=== PATIENT | male | born 1975 | race Two or more races ===

== ENCOUNTER 2020-03-25 16:39 | Outpatient (REF) | payer OTHER, SELFPAY | END 2020-03-25 16:40 | disposition home or self-care (01) | LOC: HO.LAB 16:39 | PROVIDERS: Visit Provider Internal Medicine | DX: Z20.822 Contact with and (suspected) exposure to COVID-19 (principal) | CPT/HCPCS: 36415; C9803; U0003 ==

== ENCOUNTER 2021-06-02 07:09 | Outpatient (REF) | payer OTHER, SELFPAY ==
--- NOTE | ~2021-06-02 | XR_ITS ---
EXAMINATION: XR SHOULDER, RIGHT CLINICAL INFORMATION: Pain COMPARISON: None TECHNIQUE: 3 views of the right shoulder. FINDINGS: The bones and soft tissues are normal. No fracture. Glenohumeral and acromioclavicular alignment is anatomic with normal joint space. No abnormal soft tissue calcifications. XR/XR shoulder RT min 2V IMPRESSION: Normal right shoulder.
== END 2021-06-02 07:10 | disposition home or self-care (01) ==
LOC: HO.HOSX 07:09
PROVIDERS: Visit Provider Physician Assistant
DX: M75.101 Unspecified rotator cuff tear or rupture of right shoulder, not specified as traumatic (principal)
CPT/HCPCS: 20610; 73030; 99202; J1040

== ENCOUNTER 2021-06-26 12:03 | Outpatient (REF) | payer OTHER, SELFPAY ==
[2021-06-26 12:25] LABS: MANUAL DIFF FLAG NO
[2021-06-26 13:14] LABS: Basophils Absolute Auto 0.1 X10*3/uL (0.0-0.2); Basophils Percent Auto 0.8 % (0-2); Eosinophils Absolute Auto 0.2 X10*3/uL (0.0-0.4); Eosinophils Percent Auto 2.1 % (0-4); Hematocrit 44.5 % (42.0-52.0); Hemoglobin 15.1 g/dl (14.0-18.0); Imm Gran Abs Auto 0.02 X10*3/uL (0.00-0.03); Imm Gran Pct Auto 0.2 % (0.0-0.4); Lymphocytes Absolute Auto 2.6 X10*3/uL (1.2-4.9); Lymphocytes Percent Auto 31.5 % (20-40); Mean Corpuscular HGB Conc 33.9 g/dl (31.0-36.0); Mean Corpuscular Hemoglobin 32.6 pg (27.0-33.0); Mean Corpuscular Volume 96.1 fL (80.0-98.0); Mean Platelet Volume 9.6 fL (9.4-12.4); Monocytes Absolute Auto 0.5 X10*3/uL (0.1-1.2); Monocytes Percent Auto 6.2 % (2-11); Neutrophils Absolute Auto 4.9 x10*3/uL (2.0-8.3); Neutrophils Percent Auto 59.2 % (45-73); Platelet Count 273 X10*3/uL (160-400); Red Blood Count 4.63 X10*6/uL (4.60-5.80); Red Cell Distribution Width 12.9 % (11.0-16.0); White Blood Count 8.3 X10*3/uL (4.8-10.8)
[2021-06-26 13:46] LABS: Alanine Aminotransferase 15 U/L (0-40); Albumin Level 4.5 g/dL (3.5-5.0); Alkaline Phosphatase 63 U/L (39-117); Anion Gap 10 (12-20); Aspartate Amino Transferase 16 U/L (5-37); Bilirubin Total 0.6 mg/dL (0.0-1.0); Blood Urea Nitrogen 18 mg/dL (9-16); Calcium 10.3 mg/dL (8.4-10.2); Carbon Dioxide 29 mmol/L (22-29); Chloride 105 mmol/L (96-108); Cholesterol 243 mg/dL; Estimated Glomerular Filt Rate > 60; Glucose Fasting 95 mg/dL (60-99); HDL Cholesterol 36 mg/dL; LDL Cholesterol Calculated 150 mg/dl; Potassium 4.7 mmol/L (3.3-5.1); Sodium 139 mmol/L (135-145); Total Protein 7.1 g/dL (6.5-8.0); Triglycerides 288 mg/dL
[2021-06-26 14:09] LABS: TSH reflex Free T4 1.94 uIU/mL (0.32-4.0)
[2021-07-01 14:46] LABS: Vitamin D 25-OH, D2 <4 ng/mL; Vitamin D 25-OH, D3 13 ng/mL; Vitamin D 25-OH, Total 13 ng/mL (30-100)
== END 2021-06-26 12:04 | disposition home or self-care (01) ==
LOC: HO.LAB 12:03
PROVIDERS: PCP Nurse Practitioner Family; Visit Provider Nurse Practitioner Family
DX: M75.101 Unspecified rotator cuff tear or rupture of right shoulder, not specified as traumatic (principal); I10 Essential (primary) hypertension; E78.00 Pure hypercholesterolemia, unspecified; Z76.89 Persons encountering health services in other specified circumstances; Z82.49 Family history of ischemic heart disease and other diseases of the circulatory system
CPT/HCPCS: 36415; 80053; 80061; 82306; 84443; 85025

== ENCOUNTER 2021-07-09 10:00 | Outpatient (RCR) | payer OTHER, SELFPAY ==
--- NOTE | 2021-06-17 09:52 | MHC.PT.EP ---
[facility] [place] Office [place] Office [place] Office [address] Lolly Huang [address] [phone] F: [phone] F: [phone] F: [phone] F: [phone] Physical Therapy Plan of Care Date of Evaluation: Date of Surgery: Diagnosis: This is a 45 yo male presenting to skilled PT with a script for painful arc syndrome of R shoulder Assessment: This is a 45 yo male presenting to skilled PT with a script for painful arc syndrome of R shoulder. Patient is being followed by [facility] ortho. He reports he sustained an injury of the right shoulder in early January when he was holding onto a mattress and fell (he fell forward and his arm was above his head). He denies any numbness or tingling. Pain is located at at the anterior and lateral aspect of the GHJ. Pain is described as pulling and razor blades . Patient states that he feels and hears a popping and clicking in the shoulder when he moves it. X-rays obtained in the office reveal no acute fracture of dislocation. Along with being referred to PT, he received a cortisone injection in the right shoulder (took two weeks but pain improved a little) and instructed he can take OTC ibuprofen or Motrin 600 mg to help with inflammation. He is to follow up with ortho in 6 wks if not sooner. Assessment reveals pain that ranges up to a 6/10. He demos decreased shoulder and scapular ROM, decreased shoulder and scapular strength, impaired posture with forward head and rounded shoulders, impaired shoulder joint mobility as well as gross functional decline with ADLs, reaching and pushing. He is a good candidate for skilled PT 2x/wk for 6 wks. Frequency and Duration: The patient will be seen 2x/wk for 6 wks Short Term Goals: I in HEP Demo proper cervical and shoulder alignment and posture with ther-ex, no PT cuing Usp Goals: Demo normal cervical and shoulder AROM without pain Improve pain to no more than 2/10 at the worst Improve SPADI by 10 points Tolerate rotation movements without pain, ie IR combined pushing up from bed, reaching behind etc Treatment Plan: Modalities to reduce pain, spasms and effusion. Manual therapy to restore motion and function. Therapeutic exercise to improve strength and flexibility. Neuromuscular re-education for posture and balance. Therapeutic activities to return to functional activities of daily living. Electronically signed by: Anabell Grant PT Please sign and return to therapist. Thank you for your referral.
--- NOTE | 2021-08-07 13:02 | MHC.PT.DC ---
[facility] [place] Office [place] Office [place] Office [address] Lolly Huang [address] [phone] F: [phone] F: [phone] F: [phone] F: [phone] Physical Therapy Discharge Report Diagnosis: This is a 45 yo male presenting to skilled PT with a script for painful arc syndrome of R shoulder Date of Surgery: Date of Evaluation: 06/17/21 Date of Discharge: 08/07/21 Treatments to Date: 7 Cancellations to Date: 0 No Shows to Date: 0 Discharge Status: Patient Elected to Stop Discharge Summary: Patient wants to wait for MD and wants MRI, very persistent on getting imaging since eval and does not want to continue PT. Usually during our sessions he had no increase in pain with exercises. We had multiple long discussions about his concerns. Due to patient request, held PT. DC'd after 30 days Electronically signed by: Anabell Grant PT Please sign and return to therapist. Thank you for your referral.
== END 2021-08-07 13:02 | disposition home or self-care (01) ==
LOC: HO.PTCHIC 10:00
PROVIDERS: Visit Provider Physician Assistant
DX: M75.101 Unspecified rotator cuff tear or rupture of right shoulder, not specified as traumatic (principal)
CPT/HCPCS: 97110; 97161; 97162

== ENCOUNTER → 2021-07-14 09:21 | Outpatient (BNVA) | payer OTHER, SELFPAY | PROVIDERS: PCP Nurse Practitioner Family; Visit Provider Physician Assistant | DX: M75.101 Unspecified rotator cuff tear or rupture of right shoulder, not specified as traumatic (principal) | CPT/HCPCS: 99212 ==

== ENCOUNTER 2021-08-05 18:08 | Outpatient (REF) | payer OTHER, SELFPAY ==
--- NOTE | ~2021-08-05 | MR_ITS ---
EXAMINATION: MR SHOULDER WITHOUT CONTRAST, RIGHT CLINICAL INFORMATION: Fall, right shoulder pain COMPARISON: None TECHNIQUE: MRI of the shoulder without contrast was performed on a high-field scanner. FINDINGS: ROTATOR CUFF: Intrasubstance increased signal in the anterior supraspinatus tendon measuring 0.6 x 0.6 cm, could represent focal tendinosis or a low-grade intrasubstance tear. No full-thickness tear is seen. Infraspinatus, teres minor, subscapularis is intact. No muscle atrophy or fatty infiltration. BICEPS: Normal. CORACOACROMIAL ARCH: The undersurface of the acromion is flat with no subacromial spur. Minimal acromioclavicular arthritis. Small 6 mm T2 bright focus superior to the joint, overlying the distal clavicle, could reflect a synovial recess or small ganglion cyst.No significant fluid in the subacromial subdeltoid space. LABRUM/CAPSULE: No focal labral tear is seen. GLENOHUMERAL JOINT/MARROW: There is a 8 x 7 mm lesion in the medial aspect of the humeral neck, T2 bright, with central intermediate signal foci, probable small focus of intralesional fat. Margins are well-defined. No surrounding marrow edema. This overall has a nonaggressive appearance. No evidence of fracture. No significant effusion. MR/MR shoulder RT wo con IMPRESSION: 1. Focal tendinosis and/or low-grade intrasubstance tear in the supraspinatus measuring 0.6 x 0.6 cm. 2. Minimal acromioclavicular arthritis. Small 6 mm cystic-appearing focus, from ganglion cyst versus synovial recess overlying the distal clavicle. 3. Nonaggressive appearing lesion in the medial aspect of the humeral neck measuring 8 x 7 mm. Differential consideration include chondroid lesion. Correlate with x-ray.
== END 2021-08-05 18:09 | disposition home or self-care (01) ==
LOC: HO.MRI 18:08
PROVIDERS: Visit Provider Physician Assistant
DX: M75.101 Unspecified rotator cuff tear or rupture of right shoulder, not specified as traumatic (principal)
CPT/HCPCS: 73221

== ENCOUNTER → 2021-08-19 14:54 | Outpatient (REF) | payer OTHER, SELFPAY | LOC: HO.SL 14:54 | PROVIDERS: PCP Nurse Practitioner Family; Visit Provider Nurse Practitioner Family | DX: G47.30 Sleep apnea, unspecified (principal) | CPT/HCPCS: 95806 ==

== ENCOUNTER → 2021-08-21 13:12 | Outpatient (BNVA) | payer OTHER, SELFPAY | PROVIDERS: PCP Nurse Practitioner Family; Visit Provider Physician Assistant | DX: M75.101 Unspecified rotator cuff tear or rupture of right shoulder, not specified as traumatic (principal) | CPT/HCPCS: 99212 ==

== ENCOUNTER → 2021-11-11 13:06 | Outpatient (BNVA) | payer OTHER, SELFPAY | PROVIDERS: PCP Nurse Practitioner Family; Visit Provider Nurse Practitioner Family | DX: G47.30 Sleep apnea, unspecified (principal); R06.83 Snoring; R40.0 Somnolence | CPT/HCPCS: 99202 ==

== ENCOUNTER 2022-07-29 06:42 | Outpatient (REF) | payer OTHER, SELFPAY ==
--- NOTE | ~2022-07-29 | XR_ITS ---
EXAMINATION: XR SACRUM AND COCCYX CLINICAL INFORMATION: Sacrum and coccyx x-ray COMPARISON: None available. TECHNIQUE: 2 views of the sacrum and 2 views of the coccyx were obtained. FINDINGS: There are no fractures. No bone, joint or soft tissue abnormality is demonstrated. XR/XR sacrum coccyx min 2V IMPRESSION: Unremarkable examination.
[2022-07-29 07:35] LABS: MANUAL DIFF FLAG NO
[2022-07-29 07:56] LABS: Basophils Absolute Auto 0.1 X10*3/uL (0.0-0.2); Basophils Percent Auto 0.9 % (0-2); Eosinophils Absolute Auto 0.3 X10*3/uL (0.0-0.4); Eosinophils Percent Auto 3.2 % (0-4); Hematocrit 47.3 % (42.0-52.0); Hemoglobin 15.9 g/dl (14.0-18.0); Imm Gran Abs Auto 0.01 X10*3/uL (0.00-0.03); Imm Gran Pct Auto 0.1 % (0.0-0.4); Lymphocytes Absolute Auto 2.6 X10*3/uL (1.2-4.9); Lymphocytes Percent Auto 32.3 % (20-40); Mean Corpuscular HGB Conc 33.6 g/dl (31.0-36.0); Mean Corpuscular Hemoglobin 32.1 pg (27.0-33.0); Mean Corpuscular Volume 95.6 fL (80.0-98.0); Mean Platelet Volume 8.7 fL (9.4-12.4); Monocytes Absolute Auto 0.5 X10*3/uL (0.1-1.2); Monocytes Percent Auto 5.7 % (2-11); Neutrophils Absolute Auto 4.7 x10*3/uL (2.0-8.3); Neutrophils Percent Auto 57.8 % (45-73); Platelet Count 277 X10*3/uL (160-400); Red Blood Count 4.95 X10*6/uL (4.60-5.80); Red Cell Distribution Width 13.1 % (11.0-16.0); White Blood Count 8.1 X10*3/uL (4.8-10.8)
[2022-07-29 08:30] LABS: Alanine Aminotransferase 12 U/L (0-40); Albumin Level 4.6 g/dL (3.5-5.0); Alkaline Phosphatase 59 U/L (39-117); Anion Gap 11 (12-20); Aspartate Amino Transferase 15 U/L (5-37); Bilirubin Total 0.6 mg/dL (0.0-1.0); Blood Urea Nitrogen 21 mg/dL (9-16); Calcium 9.7 mg/dL (8.4-10.2); Carbon Dioxide 26 mmol/L (22-29); Chloride 109 mmol/L (96-108); Cholesterol 270 mg/dL; Estimated Glomerular Filt Rate > 60; Glucose Fasting 93 mg/dL (60-99); HDL Cholesterol 33 mg/dL; LDL Cholesterol Calculated 185 mg/dl; Potassium 4.6 mmol/L (3.3-5.1); Sodium 141 mmol/L (135-145); Total Protein 7.2 g/dL (6.5-8.0); Triglycerides 263 mg/dL
[2022-07-29 08:48] LABS: Rheumatoid Factor < 13.0 IU/mL (<15.0)
[2022-07-29 09:05] LABS: Prostate Specific Antigen 1.02 ng/mL (<0.05-4.0)
[2022-07-29 09:09] LABS: Folate 8.5 ng/mL (> or = 4.0); Vitamin B12 283 pg/mL (200-900); Vitamin D 25-OH Total 16.7 ng/mL (>30)
[2022-08-06 10:28] LABS: Anti Nuclear Antibody Screen NEGATIVE (NEGATIVE)
[2022-08-06 11:54] LABS: Testosterone, Total 407 ng/dL (250-1100)
== END 2022-07-29 06:43 | disposition home or self-care (01) ==
LOC: HO.XRAY 06:42
PROVIDERS: PCP Nurse Practitioner Family; Visit Provider Nurse Practitioner Family
DX: Z00.00 Encounter for general adult medical examination without abnormal findings (principal); M53.3 Sacrococcygeal disorders, not elsewhere classified; M25.531 Pain in right wrist; M25.532 Pain in left wrist; R68.82 Decreased libido; Z12.5 Encounter for screening for malignant neoplasm of prostate
CPT/HCPCS: 36415; 72220; 80053; 80061; 82306; 82607; 82746; 84153; 84403; 84443; 85025; 86038; 86431

== ENCOUNTER 2023-01-13 16:22 | Outpatient (AMB) | payer OTHER, SELFPAY ==
[2023-01-13 16:26] VITALS: BP 118/76; PULSE 77; O2SAT 99; BMI 30.6
--- NOTE | 2023-01-13 16:26 | MHC.OFFWIV ---
Intake Vital Signs 01/13/23 16:26 Height 5 ft 8 in Weight 201 lb 6 oz BMI 30.6 BP 118/76 Blood Pressure Location Rt brachial Position Sitting Pulse 77 Pulse Source Pulse Oximeter Pulse Oximetry (%) 99 Oxygen Delivery Method Room Air Intake Visit Reasons: EST/broken toes right foot? (lobby) Patient Tobacco Use Status: Current everyday Tobacco user Allergies hydrocortisone [From Cortizone-10] Adverse Reaction (Intermediate, Verified 01/13/23 16:27) Dizziness Do you need a note to return to daycare/school/sports/work: No HPI HPI Comments History of Present Illness Details the patient presents to urgent care for evaluation of an injury to his right foot 3rd digit. On Tuesday he accidentally kicked a very hard solid box. His toe is Bruised and painful [facility] Medical History (Updated 01/13/23 @ 16:31 by Penny Winters DO) Toe injury Encounter to establish care Surgical History No pertinent past surgical history Family History Mother HTN (hypertension) Father HTN (hypertension) Substance use disorder Mental health disorder Sister HTN (hypertension) Social History Housing: Apartment Alcohol intake: current Alcohol intake frequency: holidays/special occasions only Patient Tobacco Use Status: Current everyday Tobacco user Tobacco use type: Cigarette Cigarette Packs Per Day: 0.5 Cigarettes Per Day: 10 e-Cigarette/Vaping Use: Never Used Second Hand Smoke Exposure: Yes service: No Current occupational status: unemployed and student Current occupation: rt hand Cognitive needs: No Hearing needs: No Vision needs: Yes (glasses) Physical Exam Vital Signs: Last Vital Signs Pulse 77 01/13/23 16:26 BP 118/76 01/13/23 16:26 Pulse Ox 99 01/13/23 16:26 Oxygen Delivery Method Room Air 01/13/23 16:26 BMI result Body Mass Index 30.6 Const General: healthy appearing and no acute distress Orientation/consciousness: patient oriented x3 Eyes Corneas: corneas normal Pupils: Equal, round and reactive pupils present Chest Chest palpation & inspection: no tenderness Resp Effort & Inspection: normal respiratory effort and able to speak in complete sentences GI Palpation (GI): nontender Neuro General: patient oriented x3 Cranial nerves: Yes Equal, round and reactive pupils present Extrem Other: right foot 3rd digit: Ecchymosis to the distal tip with tenderness with range of motion. No bony deformity appreciated. No tenderness at the proximal phalanx no tenderness over the metatarsals Psych Appearance: grossly normal Attitude: cooperative Assessment & Plan Assessment & Plan (1) Toe injury: Code(s): S99.929A - Unspecified injury of unspecified foot, initial encounter Plan X-ray of the right foot reveals a very small fracture of the distal phalanx at the joint space. Patient was placed in a postop shoe for immobilization purposes. Recommend ibuprofen and Tylenol. Orders: Orders XR toe RT min 2V Today S99.929A - Unspecified injury of unspecified foot, initial encounter Coding Level of Care Code Est Pt Level 3 (92888) Diagnoses Toe injury S99.929A
== END 2023-01-13 16:58 | disposition home or self-care (01) ==
PROVIDERS: PCP Nurse Practitioner Family; Visit Provider Emergency Medicine
DX: S99.921A Unspecified injury of right foot, initial encounter (principal)
CPT/HCPCS: 99213

== ENCOUNTER 2023-01-13 16:33 | Outpatient (REF) | payer OTHER, SELFPAY ==
--- NOTE | ~2023-01-13 | XR_ITS ---
EXAMINATION: XR TOES, RIGHT CLINICAL INFORMATION: Injury. COMPARISON: None available. TECHNIQUE: 3 views of the right toes were obtained. FINDINGS: Avulsion mild soft tissue swelling. No unexpected radiopaque foreign bodies. Fracture along the dorsal surface of the base of the third distal phalanx. XR/XR toe RT min 2V IMPRESSION: Avulsion fracture along the dorsal surface of the base of the third distal phalanx.
== END 2023-01-13 16:34 | disposition home or self-care (01) ==
LOC: HO.HMGCX 16:33
PROVIDERS: PCP Internal Medicine; Visit Provider Emergency Medicine
DX: S99.921A Unspecified injury of right foot, initial encounter (principal); X58.XXXA Exposure to other specified factors, initial encounter; Y93.9 Activity, unspecified; Y92.9 Unspecified place or not applicable; Y99.9 Unspecified external cause status
CPT/HCPCS: 73660

== ENCOUNTER 2023-09-28 14:44 | Outpatient (AMB) | payer OTHER, SELFPAY ==
[2023-09-28 14:53] VITALS: BP 114/72; PULSE 88; TEMP 36.3; O2SAT 97; BMI 32.3
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
== END 2023-09-28 15:31 | disposition home or self-care (01) ==
PROVIDERS: PCP Internal Medicine; Visit Provider Nurse Practitioner Family
DX: R51.9 Headache, unspecified (principal); S06.0X0A Concussion without loss of consciousness, initial encounter
CPT/HCPCS: 99213

== ENCOUNTER 2024-12-20 09:01 | Outpatient (RCR) | payer OTHER, SELFPAY ==
--- NOTE | 2024-11-20 12:56 | MHC.OT.EP ---
[facility] Office [address] [phone] F: [phone] F: [phone] Occupational Therapy Plan of Care Patient Name: Farhan Mari Date of Evaluation: 11/20/24 Diagnosis: B hand pain Pain Location: B hands : R thumb Pain Score: 6 Pain Scale Used: Numeric (0 - 10) Aggravating Factors: Post work its most painful when pt is placed in the kitchen Alleviating Factors: ibuprofen 700 Assessment: Pt is a 49 yr old R hand dominant male who reports for over a year now has been experiencing B hand and wrist pain. He reports he has been working in the [email or web address] at [employer] and a few mos. 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 This change began pain in his volar hand that is exacerbated when he works in this area. He reports pain in volar wrist as well as pain in the volar plates of his IF and RF (B hands). In pt's R hand he reports a triggering of the IP J of his thumb , which was visible during todays eval. He presents today w/ (+) Phalen's (R hand only) (-) Finklestein (B), and reported pain w/ palpation of volar palm (volar plates 2-5 bilateral) Pt would benefit from skilled OT Therapy to decrease these sx's and increase the B functional use of his hands. Frequency and Duration: The patient will be seen Short Term Goals: Pt will be compliant w/ his HEP Pt will be compliant w/ jt. 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 Thank you once again for your referral.
== END 2024-12-21 10:56 | disposition home or self-care (01) ==
LOC: HO.OT 09:01
PROVIDERS: PCP Internal Medicine; Visit Provider Orthopaedic Surgery
DX: M79.642 Pain in left hand (principal); M79.641 Pain in right hand; M65.4 Radial styloid tenosynovitis [de Quervain]; M65.322 Trigger finger, left index finger; M65.332 Trigger finger, left middle finger
CPT/HCPCS: 97035; 97110; 97140; 97166; 97535